=== PATIENT | male | born 1985 | race African-American/Black ===

== ENCOUNTER 2016-12-13 11:21 | Emergency (ER) | payer MEDICAID ==
[~2016-12-13] VITALS: Ht 175.3 cm; Wt 77.4 kg
[2016-12-13 11:37] VITALS: BP 122/79
== END 2016-12-13 12:37 | disposition home or self-care (01) ==
LOC: ED 12:00
DX: F14.10 Cocaine abuse, uncomplicated (principal); F15.10 Other stimulant abuse, uncomplicated; F41.9 Anxiety disorder, unspecified; F31.9 Bipolar disorder, unspecified; F90.9 Attention-deficit hyperactivity disorder, unspecified type
CPT/HCPCS: 99281